=== PATIENT | female | born 1995 | race Caucasian/White ===

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

== ENCOUNTER 2017-06-30 23:05 | Emergency (ER) | payer OTHER ==
[~2017-06-30] VITALS: Ht 162.6 cm; Wt 86.3 kg
[~2017-06-30 23:05] MED LIST changes: +BACTRIM,SEPT1 TABLET PO; +BENADRYL50 MG PO
[2017-06-30 23:29] LABS: APPEARANCE CLOUDY ((CLEAR)); BILIRUBIN NEGATIVE; BLOOD NEGATIVE; COLOR YELLOW ((YELLOW)); GLUCOSE (STRIP) NEGATIVE; KETONES NEGATIVE; LEUKOCYTES NEGATIVE; NITRITE NEGATIVE; PROTEIN (STRIP) NEGATIVE; SPECIFIC GRAVITY 1.024 (1.000-1.030); UROBILINOGEN 0.2 MG/DL (0.2-1.0)
[2017-06-30 23:36] LABS: BACTERIA NONE SEEN /HPF; EPITHELIAL CELLS 1+ /HPF; MUCUS TRACE /LPF; UCUL ADDED? NO; WHITE BLOOD CELLS 0-5 /HPF (0-5)
[2017-06-30 23:50] LABS: HEMATOCRIT 44.8 % (36.0-46.0); HEMOGLOBIN 14.4 G/DL (11.9-15.5); MCH 27.3 PG (29.0-34.0); MCHC 32.1 G/DL (30.0-36.0); PLATELET COUNT 271 K/uL (156-360); RBC DIS.WIDTH-SD 40.1 % (39-53); RED BLOOD COUNT 5.27 M/uL (3.80-5.20); WHITE BLOOD COUNT 10.1 K/uL (4.1-10.2)
[2017-06-30 23:59] LABS: ALBUMIN 4.8 g/dL (3.2-4.8)
[2017-07-01] LABS: CHLORIDE 103 mEq/L (99-109); POTASSIUM 3.7 mEq/L (3.7-5.4); SODIUM 140 mEq/L (136-147)
[2017-07-01 00:02] LABS: GLUCOSE 99 mg/dL (70-99); TOTAL PROTEIN 7.6 g/dL (6.4-8.3)
[2017-07-01 00:04] LABS: TOTAL BILIRUBIN 0.9 mg/dL (0.0-1.0)
[2017-07-01 00:05] LABS: ALKALINE PHOSPHATASE 83 IU/L (3-129)
[2017-07-01 00:06] LABS: CREATININE 0.7 mg/dL (0.6-1.3); GFR ESTIMATE (CALCULATED) > 59 mL/min/
[2017-07-01 00:07] LABS: AST (GOT) 22 IU/L (2-34); UREA NITROGEN (BUN) 10 mg/dL (9-23)
[2017-07-01 00:09] LABS: ALT (GPT) 39 IU/L (3-49)
[2017-07-01 00:15] LABS: QUANTITATIVE HCG < 4.0 MIU/ML
[2017-07-01] MEDS ORDERED: ZOFRAN4 MG PO (02:19)
[2017-07-01] MEDS ORDERED: PERCOCET 5/31 TABLET PO (02:19)
[2017-07-01 03:07] VITALS: BP 122/85
[2017-07-02] MEDS ORDERED: PEN-VEE K,VEET500 MG PO (14:08)
== END 2017-07-01 03:09 | disposition home or self-care (01) ==
LOC: EME 23:05
DX: K52.9 Noninfective gastroenteritis and colitis, unspecified (principal); E28.2 Polycystic ovarian syndrome; F32.9 Major depressive disorder, single episode, unspecified; F41.9 Anxiety disorder, unspecified; F17.200 Nicotine dependence, unspecified, uncomplicated
CPT/HCPCS: 74177; 80053; 81003; 84702; 85027; 99281; 99285; J2270; J2405; J7030

== ENCOUNTER 2017-07-02 11:04 | Emergency (ER) | payer OTHER ==
[~2017-07-02] VITALS: Ht 162.6 cm; Wt 85.3 kg
[~2017-07-02 11:04] MED LIST changes: +PERCOCET 5/31 TABLET PO; +ZOFRAN4 MG PO
[2017-07-02 12:02] LABS: HEMATOCRIT 42.4 % (36.0-46.0); HEMOGLOBIN 13.5 G/DL (11.9-15.5); MCH 27.2 PG (29.0-34.0); MCHC 31.8 G/DL (30.0-36.0); MCV 85.5 FL (83-99); PLATELET COUNT 214 K/uL (156-360); RBC DIS.WIDTH-CV 12.9 % (11.8-14.6); RBC DIS.WIDTH-SD 39.9 % (39-53); RED BLOOD COUNT 4.96 M/uL (3.80-5.20); WHITE BLOOD COUNT 5.1 K/uL (4.1-10.2)
[2017-07-02 12:10] LABS: ALBUMIN 4.2 g/dL (3.2-4.8); CHLORIDE 104 mEq/L (99-109); POTASSIUM 3.9 mEq/L (3.7-5.4); SODIUM 138 mEq/L (136-147)
[2017-07-02 12:13] LABS: GLUCOSE 92 mg/dL (70-99); TOTAL PROTEIN 6.6 g/dL (6.4-8.3)
[2017-07-02 12:16] LABS: ALKALINE PHOSPHATASE 79 IU/L (3-129); CREATININE 0.7 mg/dL (0.6-1.3); GFR ESTIMATE (CALCULATED) > 59 mL/min/; TOTAL BILIRUBIN 1.4 mg/dL (0.0-1.0)
[2017-07-02 12:17] LABS: UREA NITROGEN (BUN) 7 mg/dL (9-23)
[2017-07-02 12:18] LABS: AST (GOT) 24 IU/L (2-34)
[2017-07-02 12:19] LABS: ALT (GPT) 34 IU/L (3-49)
[2017-07-02 12:20] LABS: LIPASE 7 U/L (1.0-51.0)
[2017-07-02 12:30] LABS: QUANTITATIVE HCG < 4.0 MIU/ML
[2017-07-02 12:35] LABS: APPEARANCE SL.HAZY ((CLEAR)); BILIRUBIN NEGATIVE; BLOOD NEGATIVE; COLOR YELLOW ((YELLOW)); GLUCOSE (STRIP) NEGATIVE; KETONES NEGATIVE; LEUKOCYTES NEGATIVE; NITRITE NEGATIVE; PROTEIN (STRIP) NEGATIVE; SPECIFIC GRAVITY 1.016 (1.000-1.030)
[2017-07-02 12:48] LABS: BACTERIA NONE SEEN /HPF; EPITHELIAL CELLS 1+ /HPF; MUCUS TRACE /LPF; UCUL ADDED? NO; WHITE BLOOD CELLS 0-5 /HPF (0-5)
[2017-07-02] MEDS ORDERED: PEN-VEE K,VEET500 MG PO (14:08)
[2017-07-02 14:34] VITALS: BP 126/57
== END 2017-07-02 14:36 | disposition home or self-care (01) ==
LOC: EME 11:04
DX: K62.5 Hemorrhage of anus and rectum (principal); J02.9 Acute pharyngitis, unspecified; F32.9 Major depressive disorder, single episode, unspecified; F41.9 Anxiety disorder, unspecified; Z87.891 Personal history of nicotine dependence
CPT/HCPCS: 80053; 81003; 83690; 84702; 85027; 99281; 99285

== ENCOUNTER 2017-07-09 19:44 | Emergency (ER) | payer OTHER ==
[~2017-07-09] VITALS: Ht 162.6 cm; Wt 83.0 kg
[~2017-07-09 19:44] MED LIST changes: +PEN-VEE K,VEET500 MG PO
[2017-07-09 20:21] LABS: HEMATOCRIT 44.8 % (36.0-46.0); HEMOGLOBIN 14.5 G/DL (11.9-15.5); MCH 27.2 PG (29.0-34.0); MCHC 32.4 G/DL (30.0-36.0); MCV 84.1 FL (83-99); RBC DIS.WIDTH-SD 40.1 % (39-53); RED BLOOD COUNT 5.33 M/uL (3.80-5.20); WHITE BLOOD COUNT 10.9 K/uL (4.1-10.2)
[2017-07-09 20:23] LABS: PLATELET COUNT 292 K/uL (156-360)
[2017-07-09 20:31] LABS: CHLORIDE 103 mEq/L (99-109); POTASSIUM 3.9 mEq/L (3.7-5.4); SODIUM 139 mEq/L (136-147)
[2017-07-09 20:33] LABS: GLUCOSE 92 mg/dL (70-99); TOTAL PROTEIN 7.9 g/dL (6.4-8.3)
[2017-07-09 20:36] LABS: ALKALINE PHOSPHATASE 87 IU/L (3-129)
[2017-07-09 20:37] LABS: CREATININE 0.7 mg/dL (0.6-1.3); GFR ESTIMATE (CALCULATED) > 59 mL/min/
[2017-07-09 20:38] LABS: AST (GOT) 20 IU/L (2-34); UREA NITROGEN (BUN) 17 mg/dL (9-23)
[2017-07-09 20:40] LABS: ALT (GPT) 34 IU/L (3-49)
[2017-07-09 20:46] LABS: QUANTITATIVE HCG < 4.0 MIU/ML
[2017-07-09 21:53] LABS: APPEARANCE CLEAR ((CLEAR)); BILIRUBIN NEGATIVE; BLOOD NEGATIVE; COLOR YELLOW ((YELLOW)); GLUCOSE (STRIP) NEGATIVE; KETONES NEGATIVE; LEUKOCYTES NEGATIVE; NITRITE NEGATIVE; PROTEIN (STRIP) NEGATIVE; SPECIFIC GRAVITY 1.013 (1.000-1.030); UCUL ADDED? NO; UROBILINOGEN 0.2 MG/DL (0.2-1.0)
[2017-07-09] MEDS ORDERED: ZOFRAN ODT4 MG PO (23:57)
[2017-07-09] MEDS ORDERED: PERCOCET 5/31 TABLET PO (23:57)
[2017-07-10 00:07] VITALS: BP 124/80
== END 2017-07-10 00:22 | disposition home or self-care (01) ==
LOC: RME 19:44 → EME 19:44 → RME 07-10 00:22
DX: K62.5 Hemorrhage of anus and rectum (principal); N83.201 Unspecified ovarian cyst, right side; E28.2 Polycystic ovarian syndrome; F41.9 Anxiety disorder, unspecified; F32.9 Major depressive disorder, single episode, unspecified; Z87.891 Personal history of nicotine dependence; Z87.19 Personal history of other diseases of the digestive system; Z90.49 Acquired absence of other specified parts of digestive tract
CPT/HCPCS: 74177; 80053; 81003; 84702; 85027; 99281; 99285; J2270; J2405; J2765; J7030

== ENCOUNTER 2017-08-09 23:16 | Emergency (ER) | payer OTHER ==
[~2017-08-09] VITALS: Ht 162.6 cm; Wt 82.4 kg
[2017-08-09 23:44] LABS: HEMATOCRIT 41.9 % (36.0-46.0); HEMOGLOBIN 13.6 G/DL (11.9-15.5); MCH 27.5 PG (29.0-34.0); MCHC 32.5 G/DL (30.0-36.0); MCV 84.6 FL (83-99); PLATELET COUNT 271 K/uL (156-360); RBC DIS.WIDTH-CV 12.8 % (11.8-14.6); RBC DIS.WIDTH-SD 39.7 % (39-53); RED BLOOD COUNT 4.95 M/uL (3.80-5.20); WHITE BLOOD COUNT 7.4 K/uL (4.1-10.2)
[2017-08-09 23:56] LABS: ALBUMIN 4.6 g/dL (3.2-4.8)
[2017-08-09 23:57] LABS: CHLORIDE 104 mEq/L (99-109); SODIUM 139 mEq/L (136-147)
[2017-08-09 23:59] LABS: GLUCOSE 96 mg/dL (70-99)
[2017-08-10 00:01] LABS: TOTAL BILIRUBIN 0.9 mg/dL (0.0-1.0)
[2017-08-10 00:02] LABS: ALKALINE PHOSPHATASE 78 IU/L (3-129)
[2017-08-10 00:03] LABS: CREATININE 0.8 mg/dL (0.6-1.3); GFR ESTIMATE (CALCULATED) > 59 mL/min/
[2017-08-10 00:04] LABS: AST (GOT) 45 IU/L (2-34); UREA NITROGEN (BUN) 15 mg/dL (9-23)
[2017-08-10 00:05] LABS: ALT (GPT) 82 IU/L (3-49)
[2017-08-10 00:10] LABS: APPEARANCE CLEAR ((CLEAR)); BILIRUBIN NEGATIVE; BLOOD NEGATIVE; COLOR YELLOW ((YELLOW)); GLUCOSE (STRIP) NEGATIVE; KETONES NEGATIVE; LEUKOCYTES NEGATIVE; NITRITE NEGATIVE; PROTEIN (STRIP) NEGATIVE; SPECIFIC GRAVITY 1.027 (1.000-1.030); UCUL ADDED? NO
[2017-08-10 00:13] LABS: QUANTITATIVE HCG < 4.0 MIU/ML
[2017-08-10] MEDS ORDERED: PYRIDIUM100 MG PO (04:25)
[2017-08-10 04:45] VITALS: BP 106/79
[2017-08-10 06:23] LABS: SOURCE SWAB
[2017-08-10 18:12] LABS: CANDIDA DNA PROBE NEGATIVE; GARDNERELLA DNA PROBE NEGATIVE; TRICHOMONAS DNA PROBE NEGATIVE
== END 2017-08-10 05:28 | disposition home or self-care (01) ==
LOC: EME 23:16
PROVIDERS: Emergency Medicine
DX: R10.2 Pelvic and perineal pain (principal); R30.0 Dysuria; F41.9 Anxiety disorder, unspecified; F32.9 Major depressive disorder, single episode, unspecified; F17.200 Nicotine dependence, unspecified, uncomplicated; Z87.19 Personal history of other diseases of the digestive system; Z90.49 Acquired absence of other specified parts of digestive tract
CPT/HCPCS: 76856; 80053; 81003; 84702; 85027; 87210; 87480; 87491; 87510; 87591; 87660; 99281; 99284

== ENCOUNTER 2017-10-13 11:43 | Emergency (ER) | payer OTHER ==
[~2017-10-13] VITALS: Ht 162.6 cm; Wt 87.6 kg
[~2017-10-13 11:43] MED LIST changes: +PYRIDIUM100 MG PO
[2017-10-13 12:51] LABS: HEMATOCRIT 41.9 % (36.0-46.0); HEMOGLOBIN 14.2 G/DL (11.9-15.5); MCH 27.7 PG (29.0-34.0); MCHC 33.9 G/DL (30.0-36.0); MCV 81.7 FL (83-99); PLATELET COUNT 239 K/uL (156-360); RBC DIS.WIDTH-CV 13.4 % (11.8-14.6); RBC DIS.WIDTH-SD 40.1 % (39-53); RED BLOOD COUNT 5.13 M/uL (3.80-5.20); WHITE BLOOD COUNT 8.1 K/uL (4.1-10.2)
[2017-10-13 13:00] LABS: D-DIMER ELISA < 150.00 ng/mLDDU (<230)
[2017-10-13 13:19] LABS: TROP-I INTERPRETATION NEGATIVE; TROPONIN-I < 0.01 ng/mL (0.0-0.30)
[2017-10-13 13:24] LABS: CHLORIDE 105 MEQ/L (99-109); CREATININE 0.6 MG/DL (0.6-1.3); GFR ESTIMATE (CALCULATED) > 59 mL/min/; GLUCOSE 100 mg/dL (70-99); POTASSIUM 3.9 MEQ/L (3.7-5.4); SODIUM 140 MEQ/L (136-147); UREA NITROGEN (BUN) 10 mg/dL (9-23)
[2017-10-13 13:29] LABS: QUANTITATIVE HCG < 4.0 MIU/ML
[2017-10-13] MEDS ORDERED: ATIVAN0.5 MG PO (13:50)
[2017-10-13] MEDS ORDERED: NAPROSYN500 MG PO (13:50)
[2017-10-13 14:03] VITALS: BP 128/97
== END 2017-10-13 14:06 | disposition home or self-care (01) ==
LOC: EME 11:43
PROVIDERS: Nurse Practitioner Family
DX: F41.0 Panic disorder [episodic paroxysmal anxiety] (principal); F43.10 Post-traumatic stress disorder, unspecified; F17.200 Nicotine dependence, unspecified, uncomplicated
CPT/HCPCS: 71046; 80048; 84484; 84702; 85027; 85379; 93005; 99281; 99284